=== PATIENT | female | born 1940 | race Two or more races ===

== ENCOUNTER 2018-05-31 03:37 | Inpatient (IN) | payer OTHER ==
[~2018-05-31] VITALS: Ht 165.1 cm; Wt 76.2 kg
[2018-05-31] MEDS ORDERED: ONDANSETRON HCL 4MG/2ML INJ IV STA (04:13)
[2018-05-31] MEDS ORDERED: FAMOTIDINE 20MG/2ML VIAL IV STA (04:13)
[2018-05-31] MEDS ORDERED: MORPHINE SULFATE 4 MG/ML CPJ (NOT FOR IM USE) IV STA (04:13)
[2018-05-31 05:28] LABS: CLARITY URINE CLEAR (CLEAR); COLOR URINE YELLOW (YELLOW); KETONES URINE NEGATIVE (NEGATIVE); LEUKOCYTE ESTERASE URINE NEGATIVE (NEGATIVE); NITRITE URINE NEGATIVE (NEGATIVE); OCCULT BLOOD URINE NEGATIVE (NEGATIVE); PH URINE 7.5 (4.5-8.0); PROTEIN URINE 1+ (NEGATIVE); SPECIFIC GRAVITY URINE 1.023 (1.005-1.030)
[2018-05-31 05:30] LABS: HEMATOCRIT. 43.5 % (36.0-48.0); HEMOGLOBIN. 15.2 g/dL (12.0-16.0); MEAN CORPUSCULAR HEMOGLOBIN 30.6 pg (28.0-32.0); MEAN CORPUSCULAR VOLUME 87.6 fL (81.0-99.0); MEAN PLATELET VOLUME 7.6 fl (7.4-10.4); PLATELET 255 x1000/uL (130-400); RED BLOOD CELL COUNT 4.97 mill/uL (4.2-5.4); RED CELL DISTRIBUTION WIDTH 13.1 % (11.6-14.6)
[2018-05-31 05:34] LABS: CHLORIDE 99 mEq/L (98-107)
[2018-05-31 05:37] LABS: ETHANOL BLOOD < 10 mg/dL
[2018-05-31 05:44] LABS: D-DIMER 3.79 mg/L FEU (<0.50)
[2018-05-31 05:46] LABS: *AMPHETAMINES SCREEN URINE NEGATIVE (NEGATIVE); CANNABINOID URINE SCREEN NEGATIVE (NEGATIVE)
[2018-05-31 05:47] LABS: *BARBITURATES SCREEN URINE NEGATIVE (NEGATIVE); *BENZODIAZEPINES SCREEN URINE NEGATIVE (NEGATIVE); *COCAINE SCREEN URINE NEGATIVE (NEGATIVE); METHADONE URINE SCREEN NEGATIVE (NEGATIVE); PHENCYCLIDINE URINE SCREEN NEGATIVE (NEGATIVE)
[2018-05-31 05:48] LABS: OPIATES URINE SCREEN NEGATIVE (NEGATIVE)
[2018-05-31] MEDS ORDERED: ONDANSETRON HCL 4MG/2ML INJ IV ONE (06:30)
[2018-05-31 06:56] LABS: PLATELET ESTIMATE NORMAL
[2018-05-31] MEDS ORDERED: TRAMADOL 50MG TABLET PO PRN (09:30)
[2018-05-31] MEDS ORDERED: GUAIFENESIN 200MG/10ML SUGAR FREE UDC PO PRN (09:30)
[2018-05-31] MEDS ORDERED: ACETAMINOPHEN 325MG TABLET PO PRN (09:30)
[2018-05-31] MEDS ORDERED: DOCUSATE SODIUM 100MG CAPSULE PO PRN (09:30)
[2018-05-31] MEDS ORDERED: CLONIDINE 0.1MG TABLET PO PRN (09:30)
[2018-05-31] MEDS ORDERED: NA PHOS,M-B/NA PHOS,DI-BA ENEMA 118ML PR PRN (09:30)
[2018-05-31] MEDS ORDERED: MAGNESIUM/ALUMINUM HYDROXIDE/SIMETHICONE 30ML UDC PO PRN (09:30)
[2018-05-31] MEDS ORDERED: IPRATROPIUM/ALBUTEROL 0.5-3(2.5)MG/3ML NEB INH PRN (09:30)
[2018-05-31] MEDS ORDERED: NITROGLYCERIN 0.4MG TABLET SL SL PRN (09:30)
[2018-05-31] MEDS ORDERED: ONDANSETRON HCL 4MG/2ML INJ IV PRN (09:30)
[2018-05-31] MEDS ORDERED: IOHEXOL-350 100 ML BOTTLE ONE (10:05)
[2018-05-31] MEDS ORDERED: DEXTROSE 50% WATER 50ML SYRINGE IV PRN (16:30)
[2018-05-31 20:28] LABS: CREATINE KINASE 84 IU/L (26-192)
[2018-05-31 20:29] LABS: CREATINE KINASE MB FRACTION 1.6 ng/mL (0.5-3.6)
[2018-05-31] MEDS ORDERED: FAMOTIDINE 20MG TABLET PO SCH (22:00)
[2018-05-31] MEDS ORDERED: ZOLPIDEM TARTRATE 5MG TABLET PO PRN (22:00)
[2018-05-31] MEDS: BLOOD SUGAR DIAGNOSTIC STRIP TEST SCH (22:00)
[2018-05-31] MEDS: INSULIN LISPRO 100 UNITS/ML SUBCUT SCH (22:00)
[2018-05-31] MEDS ORDERED: ATORVASTATIN CALCIUM 20MG TABLET PO SCH (22:00)
[2018-05-31] MEDS ORDERED: POTASSIUM CHLORIDE 20MEQ TABLET SR PO NR (22:00)
[2018-05-31] MEDS ORDERED: ENOXAPARIN 40MG/0.4ML SYR SUBCUT SCH (22:00)
[2018-05-31 22:02] VITALS: BP 155/78
[2018-05-31 22:06] VITALS: BP 155/78
[2018-05-31] MEDS ORDERED: HYDR-4134 PO (22:20)
[2018-05-31] MEDS ORDERED: FISH PO (22:20)
[2018-05-31] MEDS ORDERED: AMLO5TAB88 PO (22:20)
[2018-05-31] MEDS ORDERED: ATEN-42 PO (22:20)
[2018-05-31] MEDS ORDERED: ASPI-1159 PO (22:20)
[2018-05-31] MEDS: SUCRALFATE 1 G/10 ML UDC PO SCH (22:45)
[2018-05-31] MEDS: METOPROLOL TARTRATE 25MG TABLET PO SCH (22:46)
[2018-06-01 00:05] VITALS: BP 122/65
[2018-06-01 03:57] LABS: CREATINE KINASE MB FRACTION 1.7 ng/mL (0.5-3.6)
[2018-06-01 04:00] VITALS: BP 121/56
[2018-06-01] MEDS: BLOOD SUGAR DIAGNOSTIC STRIP TEST SCH ×2 (07:40→12:40)
[2018-06-01] MEDS: INSULIN LISPRO 100 UNITS/ML SUBCUT SCH ×2 (08:10→13:10)
[2018-06-01 08:14] VITALS: BP 104/52
[2018-06-01] MEDS: SUCRALFATE 1 G/10 ML UDC PO SCH ×2 (08:40→14:05)
[2018-06-01] MEDS: METOPROLOL TARTRATE 25MG TABLET PO SCH (08:47)
[2018-06-01] MEDS ORDERED: ASPIRIN 325MG EC TABLET PO SCH (09:00)
[2018-06-01 12:42] VITALS: BP 155/67
[2018-06-01 15:29] VITALS: BP 155/67
== END 2018-06-01 16:25 | disposition short-term general hospital (02) | DRG 313 ==
LOC: ER 04:50 → 7WST 06:19 → EDBEDREQ 06:26 → EDBEDREQTM 06:28 → EDBEDREQ 06:28 → ENRESERV 19:26
PROVIDERS: ADMIT Internal Medicine; ATTEND Internal Medicine
DX: R07.89 Other chest pain (principal); K29.70 Gastritis, unspecified, without bleeding; D72.825 Bandemia; K52.9 Noninfective gastroenteritis and colitis, unspecified; E66.9 Obesity, unspecified; E07.9 Disorder of thyroid, unspecified; I10 Essential (primary) hypertension; E87.6 Hypokalemia; E11.9 Type 2 diabetes mellitus without complications; J39.8 Other specified diseases of upper respiratory tract; Z71.3 Dietary counseling and surveillance; Z90.49 Acquired absence of other specified parts of digestive tract; Z68.28 Body mass index [BMI] 28.0-28.9, adult; Z91.048 Other nonmedicinal substance allergy status
CPT/HCPCS: 36415; 71045; 71275; 74176; 80061; 80305; 82550; 82553; 82962; 83036; 83880; 84484; 85379; 93005; 93970; 96374; 96375; 96376; 99285; G0482; J1650; J1815; J2270; J2405; J3490; Q9967